=== PATIENT | female | born 1950 | race Caucasian/White ===

== ENCOUNTER → 2025-05-29 13:21 | Outpatient (BNVA) | payer MEDICARE, SELFPAY | PROVIDERS: Visit Provider Podiatrist Foot & Ankle Surgery | DX: M79.671 Pain in right foot (principal); E11.8 Type 2 diabetes mellitus with unspecified complications; S92.511A Displaced fracture of proximal phalanx of right lesser toe(s), initial encounter for closed fracture; X58.XXXA Exposure to other specified factors, initial encounter | CPT/HCPCS: 73630; 99204 ==

== ENCOUNTER 2025-06-11 12:18 | Outpatient (RCR) | payer MEDICARE, SELFPAY | END 2025-06-16 23:59 | disposition home or self-care (01) | LOC: TST 12:18 | PROVIDERS: Visit Provider Psychiatry & Neurology Neurology | DX: I63.9 Cerebral infarction, unspecified (principal) | CPT/HCPCS: 92523 ==

== ENCOUNTER 2025-07-01 12:00 | Outpatient (RCR) | payer MEDICARE, SELFPAY | END 2025-07-17 23:59 | disposition home or self-care (01) | LOC: TST 12:00 | PROVIDERS: Visit Provider Psychiatry & Neurology Neurology | DX: I63.9 Cerebral infarction, unspecified (principal) | CPT/HCPCS: 92526 ==